=== PATIENT | female | born 1940 | race Caucasian/White ===

== ENCOUNTER 2018-10-08 07:25 | Day surgery (SDC) | payer OTHER, MEDICARE ==
[2018-10-07 12:21] VITALS: BMI 28.9
[2018-10-08] MEDS ORDERED: LIDOCAINE 1%/EPI 1:100000 (20 ML MULTI DOSE VIAL) ONE (08:55)
[2018-10-08] MEDS ORDERED: ERYTHROMYCIN 0.5% OPHTHALMIC OINTMENT 3.5 GM TUBE ONE (08:55)
[2018-10-08] MEDS ORDERED: TETRACAINE 0.5% OPHTH SOLN 2 ML BOTTLE ONE (08:55)
[2018-10-08] MEDS ORDERED: POVIDONE-IODINE 5% OPHTHALMIC PREP 30 ML SOLUTION ONE (08:55)
[2018-10-08] MEDS ORDERED: MIDAZOLAM HCL 2 MG/2 ML SINGLE DOSE VIAL ONE (09:22)
[2018-10-08] MEDS ORDERED: ONDANSETRON 4 MG/2 ML VIAL ONE (09:25)
[2018-10-08] MEDS ORDERED: DEXAMETHASONE SOD PHOSPHATE 4 MG/1 ML VIAL ONE (09:25)
[2018-10-08 10:35] VITALS: TEMP 98.2
[2018-10-08] MEDS ORDERED: ACETAMINOPHEN 325 MG TABLET (FP) ONE ×2 (10:43)
[2018-10-08 11:00] VITALS: BP 144/82; PULSE 84
--- NOTE | 2018-10-08 11:12 | OP ---
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 PROCEDURE: Conjunctival and Pat resection right upper lid and repair of ptosis. SURGEON: Estee Gardner MD ANESTHESIA: Local with sedation. COMPLICATIONS: None. ESTIMATED BLOOD LOSS: 1 mL. OPERATIVE REPORT: The patient was brought to the operating room and placed on the operating room table. Vital signs were monitored by Anesthesia. Tetracaine was placed in both eyes. A time-out was performed after which 2% Xylocaine with 1:100,000 epinephrine was injected for 0.5 mL in the central right upper lobe on the skin, and the lid was everted, and 0.5 mL was injected at the superior tarsus in the subconjunctival space. Massage was applied for hemostasis. The patient was prepped and draped in the usual sterile fashion exposing both eyes. A 4-0 silk tracking suture was passed through the central lid margin right upper lid. The lid was everted over a Desmarres retractor. A 4.125 mm estimated by ruler and caliber approximate measurement was now measured from the central tarsus superiorly, and a gretchen was placed at that point and then 7 mm nasal and 7 mm temporal to this gretchen. A 6-0 silk suture was passed through each of these 3 xiong through the conjunctivae only and then the suture was used in a 4-prong suture to elevate the conjunctival, which was tented away from the levator and pulled in opposite direction the conjunctivae and Pat from levator. A Putterman clamp was then used to incorporate the tissue between the superior tarsus and the folded tissue, which was approximately 8.25 mm as it was doubled the measured height from the superior tarsus to the gretchen, and this conjunctivae and Pat muscle was incorporated in the Putterman clamp. The clamp was then pulled inferiorly as the skin was tented externally, superiorly demonstrating no adhesion between the 2 layers. Double arm 6-0 plain suture was now run from temporal to nasal in a mattress fashion. The incorporated tissue was the resected with a 15 blade being careful not to cut the suture. The 6-0 plain was then run back toward the temporal incision, and each arm of the suture was then passed through the full-thickness eyelet. During tying of the 6-0 plain, one of the arms broke, and therefore, an additional 5-0 plain suture was run with the lid everted from temporal to nasal. This was run in a baseball-type fashion, and this was used to secure the 6-0 plain into position. Each arm of this 5-0 plain was then passed through the full-thickness eyelet nasally and temporally and tied to itself with a locking knot so as to maintain the tightness of the 5-0 plain. The lid was everted demonstrating good closure of the wound with no excess suture material exposed. Erythromycin ointment was placed on the eye and on the suture of the right upper lid externally, and the traction sutures were removed, and the patient was taken to the recovery room in stable condition. ESTEE GARDNER M.D. FIOR/[id number]
[2018-10-08] MEDS ORDERED: ACETAMINOPHEN 325 MG TABLET (FP) PO PRN (12:04)
[2018-10-08] MEDS ORDERED: ONDANSETRON 4 MG/2 ML VIAL IVPUSH PRN (12:04)
[2018-10-08] MEDS ORDERED: LACTATED RINGERS SOLUTION 1,000 ML IV SCH (12:15)
--- NOTE | 2018-10-10 16:03 | PATH ---
Surgical Pathology Report Patient Name: VANESSA LOPEZ [facility]. Rec. #: [id number] /Age/Gender: 1940 (Age: 77) / F Account: [id number] Location: [facility] Taken: 10/08/2018 Received: 10/08/2018 Reported: 10/10/2018 Physicians: Stuart Martinez Specimen(s) Received RIGHT UPPER EYELID Clinical History Ptosis right upper eyelid Final Diagnosis UPPER EYELID, RIGHT, PTOSIS REPAIR: PORTION OF EYELID TISSUE SHOWING FIBROSIS. Electronically Signed Khushi Cote M.D. Gross Description Received in formalin labeled "right upper eyelid," is a 1.2 x 0.1 cm lang, elongated, unoriented portion of lang tissue excised to depth of 0.2 cm. No discrete lesion is identified. The specimen is submitted in toto in one cassette. /10/09/201810/09/2018
== END 2018-10-08 11:34 | disposition home or self-care (01) ==
LOC: FASU 07:25
PROVIDERS: ATTEND Ophthalmology
PROC: 08SN0ZZ Reposition Right Upper Eyelid, Open Approach (ICD-10-PCS; principal; 2018-10-08 09:34)
DX: H02.421 Myogenic ptosis of right eyelid (principal)
CPT/HCPCS: 88304-TC